=== PATIENT | male | born 1995 | race Caucasian/White ===

== ENCOUNTER 2020-02-09 14:24 | Observation (INO) | payer OTHER ==
[~2020-02-09] VITALS: Ht 185.4 cm; Wt 106.8 kg
[2020-02-09] VITALS (11 sets, daily range): BP systolic 110–149; BP diastolic 50–94
[2020-02-09] MEDS ORDERED: KETAMINE IV ONE (14:30)
[2020-02-09] MEDS ORDERED: NORMAL SALINE IV ONE (14:30)
[2020-02-09] MEDS ORDERED: fentaNYL/PF 50MCG/1 ML 2ML syringe IV ONE ×3 (14:45→15:20)
[2020-02-09] MEDS ORDERED: etomidate 2mg/ml inj. IV ONE (15:20)
[2020-02-09] MEDS ORDERED: ondansetron/PF 4mg/2ml inj IV ONE (15:20)
[2020-02-09] MEDS ORDERED: normal saline 1000ML IV soln IVB ONE (15:35)
[2020-02-09] MEDS: HYDROmorphone 1 mg/ml syringe IV PRN ×2 (15:45→16:21)
[2020-02-09] MEDS ORDERED: BUPIVAcaine/PF 2.5 mg/ml (0.25%) 30ml vial ONE (16:29)
[2020-02-09] MEDS ORDERED: ceFAZolin 1000mg inj ONE ×3 (16:29→17:36)
[2020-02-09] MEDS ORDERED: NO HOME MEDS (16:33)
[2020-02-09] MEDS ORDERED: cloNIDine hcl/PF 100mcg/ml inj ONE (17:00)
[2020-02-09] MEDS ORDERED: fentaNYL/PF 50MCG/1 ML 2ML syringe ONE (17:02)
[2020-02-09] MEDS ORDERED: propofol inj 20 ML IV ONE (17:03)
[2020-02-09] MEDS ORDERED: midazolam 2 mg/2 ml injection ONE (17:03)
[2020-02-09] MEDS ORDERED: ROPIVAcaine 0.5% (5mg/ml) 30ml vial ONE (17:04)
[2020-02-09] MEDS ORDERED: sevoflurane 250ml liquid IH ONE (17:11)
[2020-02-09] MEDS ORDERED: ringers solution, lacted 1,000 ML IV SCH (17:12)
[2020-02-09] MEDS ORDERED: ondansetron/PF 4mg/2ml inj IV PRN ×2 (17:15→20:15)
[2020-02-09] MEDS ORDERED: morphine 4 MG/ML inj SYRINge IV PRN (17:15)
[2020-02-09] MEDS ORDERED: meperidine/PF 25mg/ml syringe IV PRN ×3 (17:15)
[2020-02-09] MEDS ORDERED: proCHLORperazine 10 MG/2 ml inj IV PRN (17:15)
[2020-02-09] MEDS ORDERED: morphine 2 MG/ML inj. syringe IV PRN (17:15)
[2020-02-09] MEDS ORDERED: diphenhydrAMINE 25mg capsule PO PRN ×2 (20:15)
[2020-02-09] MEDS ORDERED: acetaminophen 325mg tablet PO PRN (20:15)
[2020-02-09] MEDS ORDERED: bisacodyl 10mg suppository rectal RC PRN (20:15)
[2020-02-09] MEDS ORDERED: HYDROmorphone 1 mg/ml syringe IV PRN (20:15)
[2020-02-09] MEDS ORDERED: magnesium hydroxide 30ml (MOM) UD suspension PO PRN (20:15)
[2020-02-09] MEDS ORDERED: oxyCODONE IR 5mg (immed. release) tablet PO PRN (20:15)
[2020-02-09] MEDS ORDERED: HYDROmorphone inj. 0.5 MG/0.5 ML DISP.SYRIN IV PRN (20:15)
--- NOTE | 2020-02-09 20:16 | NUR ---
Received from OR via [facility] WITH [facility] , accompanied by Anesthesiologist HOLLY and report given by Anesthesiolgist. PATIENT WITH SLING TO RIGHT UE, CANNOT MOVE RIGHT UE AT ALL AT THIS TIME 2' NERVE BLOCK TO RADIAL, ULNAR AND MEDIAL NERVES. + EPHRAIM SHEEHAN. MARIBELL TORREZ. LEFT 20G PIV IN HAND RUNNING LR AT 100. VSS. Addendum: 02/09/20 at 2042 by Pablo Scherer RN, RN Amended: Links added.
[2020-02-09] MEDS ORDERED: vancomycin/NS 1 GM ADD-VANTAGE 250 ML IV ONE (20:50)
[2020-02-09] MEDS ORDERED: sennosides 8.6mg tablet PO SCH (21:00)
--- NOTE | 2020-02-09 21:06 | NUR ---
ALL CRITERIA FOR TRANSFER TO THE FLOOR HAS BEEN ACHIEVED. VSS. BED LOW, CALL LIGHT AND VS. SET IN PLACE. RN PRESENT TO ACCEPT CARE. PATIENT RESTING COMFORTABLY IN BED. BELONGINGS SENT WITH PATIENT. DRESSINGS CDI. BRYAN FRANCO PRESENT TO ACCEPT CARE AT THIS TIME. REPORT GIVEN AND ALL QUESTIONS ANSWERED. PATIENT REMAINS NUMB TO RIGHT UE 2' NERVE BLOCK . DENIES PAIN. VSS. PATIENT BELONGINGS X2 BAGS (LABELED) AT BEDSIDE. Addendum: 02/09/20 at 2115 by Pablo Scherer RN, RN Amended: Links added.
[2020-02-09] MEDS: gabapentin 300mg capsule PO SCH (22:23)
[2020-02-09] MEDS: ceFAZolin 1GM/D5W- ADD-VANTAGE 50 ML IV SCH (23:44)
[2020-02-10] MEDS ORDERED: ceFAZolin 1GM/D5W- ADD-VANTAGE 50 ML IV SCH
[2020-02-10 00:01] VITALS: BP 123/60
[2020-02-10 01:00] VITALS: BP 116/64
[2020-02-10 02:00] VITALS: BP 128/64
[2020-02-10] MEDS: acetaminophen 325mg tablet PO SCH ×2 (02:01→07:29)
--- NOTE | 2020-02-10 02:17 | NUR ---
Drainage noted on ELICEO bandage from surgical site. Covered with 2 ABD's and a new ELICEO wrap place over surgical dressing. Placed surgical arm on pillows and a chux.
[2020-02-10 05:47] LABS: BASOPHILS % (AUTO) 0.1 % (0-1); EOSINOPHILS % (AUTO) 0 % (0-6); HEMATOCRIT 43.3 % (42.0-52.0); HEMOGLOBIN 14.6 g/dl (14.0-17.9); LYMPHOCYTES # (AUTO) 1.1 X10'3 (1.1-4.8); LYMPHOCYTES % (AUTO) 9.6 % (21-51); MEAN CORPUSCULAR HGB CONC 33.8 g/dL (33.0-36.5); MEAN CORPUSCULAR VOLUME 88.6 FL (78-98); MEAN PLATELET VOLUME 9.2 FL (7.4-10.4); MONOCYTES # (AUTO) 0.8 X10'3 (0-0.9); MONOCYTES % (AUTO) 6.9 % (2-12); NEUTROPHILS # (AUTO) 9.3 X10'3 (1.8-7.7); NEUTROPHILS % (AUTO) 83.4 % (42-75); PLATELET COUNT 223 X10'3 (140-440); RED BLOOD COUNT 4.88 X10'6 (4.70-6.10); RED CELL DISTRIBUTION WIDTH 13.9 % (11.5-14.5); WHITE BLOOD COUNT 11.2 X10'3 (4.5-11.0)
[2020-02-10 06:00] VITALS: BP 102/52
[2020-02-10 06:10] LABS: ALANINE AMINOTRANSFERASE 29 U/L (12-78); ALBUMIN 3.4 G/DL (3.4-5.0); ALBUMIN/GLOBULIN RATIO 1.1 (1.1-1.5); ALKALINE PHOSPHATASE 51 IU/L (46-116); ANION GAP 5 (8-16); ASPARTATE AMINO TRANSFERASE 27 U/L (10-37); BILIRUBIN,TOTAL 0.7 MG/DL (0.1-1.0); BLOOD UREA NITROGEN 10 MG/DL (7-18); BUN/CREATININE RATIO 10.4 (5.4-32.0); CALCIUM 8.9 MG/DL (8.5-10.1); CHLORIDE 104 MMOL/L (99-107); CREATININE 0.96 MG/DL (0.60-1.10); GLUCOSE 125 MG/DL (70-104); POTASSIUM 4.3 MMOL/L (3.5-5.1); SODIUM 136 MMOL/L (135-145); TOTAL CARBON DIOXIDE 27.4 MMOL/L (24-32); TOTAL PROTEIN 6.5 G/DL (6.4-8.2); eGFR > 90 ML/MIN
--- NOTE | 2020-02-10 06:39 | NUR ---
Problems reprioritized. Patient report given, questions answered & plan of care reviewed with Amy ADAMS.
[2020-02-10] MEDS: gabapentin 300mg capsule PO SCH (07:29)
[2020-02-10] MEDS: ceFAZolin 1GM/D5W- ADD-VANTAGE 50 ML IV SCH (07:30)
[2020-02-10] MEDS ORDERED: vancomycin/NS 1 GM ADD-VANTAGE 250 ML IV SCH (08:00)
[2020-02-10 10:00] VITALS: BP 130/79
[2020-02-10] MEDS: oxyCODONE IR 5mg (immed. release) tablet PO PRN ×2 (10:22→11:12)
[2020-02-10] MEDS ORDERED: HYDR-4353 PO (10:38)
--- NOTE | 2020-02-10 12:14 | NUR ---
Patient stable for discharge. Belongings and prescription sent home with patient. Discharge instructions given to patient. 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
[2020-02-10] MEDS ORDERED: celeCOXIB 100mg capsule PO SCH (20:00)
[2020-02-11] MEDS ORDERED: acetaminophen 325mg tablet PO PRN (20:15)
== END 2020-02-10 12:05 | disposition home or self-care (01) ==
LOC: ER 14:25 → ORTHO 4S 20:11
PROVIDERS: ADMIT Orthopaedic Surgery; ATTEND Orthopaedic Surgery
DX: S52.301A Unspecified fracture of shaft of right radius, initial encounter for closed fracture (principal); S52.201A Unspecified fracture of shaft of right ulna, initial encounter for closed fracture; W18.39XA Other fall on same level, initial encounter; Y93.89 Activity, other specified; Y92.89 Other specified places as the place of occurrence of the external cause
CPT/HCPCS: 25575; 36415; 73090; 76000; 80053; 85025; 87081; 96365; 96366; 96367; 96375; 96376; 99285; C1713; G0378; J0690; J0735; J1170; J2250; J2405; J2704; J3010; J3370; J3490; J7030; J7120; A4618; A6449; A7000; J2795

== ENCOUNTER 2020-04-26 11:18 | Day surgery (SDC) | payer OTHER ==
[2020-04-21 12:10] LABS: BASOPHILS % (AUTO) 0.6 % (0-1); EOSINOPHILS # (AUTO) 0.1 X10'3 (0-0.9); EOSINOPHILS % (AUTO) 1.7 % (0-6); LYMPHOCYTES # (AUTO) 1.9 X10'3 (1.1-4.8); LYMPHOCYTES % (AUTO) 32.4 % (21-51); MEAN CORPUSCULAR HEMOGLOBIN 29.5 PG (27.0-31.0); MEAN CORPUSCULAR HGB CONC 33.9 g/dL (33.0-36.5); MONOCYTES # (AUTO) 0.6 X10'3 (0-0.9); MONOCYTES % (AUTO) 11.1 % (2-12); NEUTROPHILS # (AUTO) 3.2 X10'3 (1.8-7.7); NEUTROPHILS % (AUTO) 54.2 % (42-75); PRE OP HEMATOCRIT 44.8 % (42.0-52.0); PRE OP HEMOGLOBIN 15.2 g/dL (14.0-17.9); PRE OP PLATELET COUNT 238 X10'3 (140-440); RED BLOOD COUNT 5.15 X10'6 (4.70-6.10); RED CELL DISTRIBUTION WIDTH 13.8 % (11.5-14.5)
[~2020-04-26] VITALS: Ht 185.4 cm; Wt 106.6 kg
[~2020-04-26 11:18] MED LIST: NO HOME MEDS; cefazolin/dext.iso 2gm/50ml 50 ML IV ONE; famotidine 20mg tablet PO ONE; ringers solution, lacted 1,000 ML IV SCH
[2020-04-26 11:25] VITALS: BP 115/70
[2020-04-26] MEDS ORDERED: sevoflurane 250ml liquid IH ONE (15:46)
[2020-04-26] MEDS ORDERED: ROPIVAcaine 0.5% (5mg/ml) 30ml vial ONE (15:50)
[2020-04-26] MEDS ORDERED: cloNIDine hcl/PF 100mcg/ml inj ONE (15:50)
[2020-04-26] MEDS ORDERED: midazolam 2 mg/2 ml injection ONE (15:54)
[2020-04-26] MEDS ORDERED: fentaNYL/PF 50MCG/1 ML 2ML syringe ONE (15:54)
[2020-04-26] MEDS ORDERED: ringers solution, lacted 1,000 ML IV SCH (16:49)
[2020-04-26] MEDS ORDERED: meperidine/PF 25mg/ml syringe IV PRN ×3 (16:50)
[2020-04-26] MEDS ORDERED: ondansetron/PF 4mg/2ml inj IV PRN (16:50)
[2020-04-26] MEDS ORDERED: morphine 2 MG/ML inj. syringe IV PRN (16:50)
[2020-04-26] MEDS ORDERED: morphine 4 MG/ML inj SYRINge IV PRN (16:50)
[2020-04-26] MEDS ORDERED: proCHLORperazine 10 MG/2 ml inj IV PRN (16:50)
[2020-04-26] MEDS ORDERED: propofol inj 20 ML IV ONE (17:36)
[2020-04-26 17:40] VITALS: BP 120/74
--- NOTE | 2020-04-26 17:40 | NUR ---
Received from OR via [facility] , accompanied by Anesthesiologist HOLLY and report given by Anesthesiolgist. PATIENT WITH 20G PIV IN LEFT UE RUNNIGN LR AT 100. RIGHT HAND/ WRIST IN SPLINT AND IS CDI. VSS. DENIES PAIN. NO MOVEMENT TO FINGERS OF YET. WILL CONTINUE TO ASSESS FOR PAIN. VSS Addendum: 04/26/20 at 1752 by Pablo Scherer RN, RN Amended: Links added.
[2020-04-26 17:50] VITALS: BP 115/80
[2020-04-26 18:00] VITALS: BP 106/80
[2020-04-26 18:10] VITALS: BP 110/78
--- NOTE | 2020-04-26 18:20 | NUR ---
I HAVE REVIEWED D/C INSTRUCTIONS WITH PATIENT AND FAMILY AND THEY HAVE VERBALIZED UNDERSTANDING. PATIENT D/C HOME WITH ALL BELONGINGS AND FAMILY GAVE TRANSPORT HOME. DISCUSSED SLEEP APNEA. PATIENT STATES THAT HE WILL SLEEP IN A RECLINER. VSS. DENIES PAIN. BLOCK INTACT. Addendum: 04/26/20 at 1841 by Pablo Scherer RN, RN Amended: Links added.
== END 2020-04-26 17:40 | disposition home or self-care (01) ==
LOC: PAS 11:18
PROVIDERS: ATTEND Orthopaedic Surgery
DX: S52.39 Other fracture of shaft of radius (principal); T84.192A Other mechanical complication of internal fixation device of bone of right forearm, initial encounter; G89.18 Other acute postprocedural pain; E66.9 Obesity, unspecified; Z68.31 Body mass index [BMI] 31.0-31.9, adult; Z87.891 Personal history of nicotine dependence; Z98.890 Other specified postprocedural states; Z11.59 Encounter for screening for other viral diseases; X58.XXXD Exposure to other specified factors, subsequent encounter; Y83.8 Other surgical procedures as the cause of abnormal reaction of the patient, or of later complication, without mention of misadventure at the time of the procedure; Y92.89 Other specified places as the place of occurrence of the external cause; Z79.899 Other long term (current) drug therapy
CPT/HCPCS: 20680; 25515; 36415; 64417; 82948; 85025; C1713; J0735; J2250; J2704; J3010; J7120; U0003; A4215; A4618; A6449; A7000; J2795